=== PATIENT | female | born 1970 | race Caucasian/White ===

== ENCOUNTER → 2016-08-31 | Outpatient (CLI) | payer MEDICAID ==
[2016-08-31 12:33] LABS: BASOPHILS # (AUTO) 0.1 X10^3/uL (0.0-0.1); BASOPHILS % (AUTO) 1.3 % (0.2-1.0); EOSINOPHILS # (AUTO) 0.1 x10^3/uL (0.0-0.2); EOSINOPHILS % (AUTO) 1.3 % (0.9-2.9); HEMATOCRIT 36.9 % (36.0-47.0); HEMOGLOBIN 12.3 g/dL (12.0-16.0); LYMPHOCYTES # (AUTO) 2.3 X10^3/uL (1.3-2.9); LYMPHOCYTES % (AUTO) 40.5 % (21.0-51.0); MEAN CORPUSCULAR HEMOGLOBIN 26.1 pg (27.0-34.0); MEAN CORPUSCULAR HGB CONC 33.2 g/dL (33.0-35.0); MEAN CORPUSCULAR VOLUME 78.8 fL (80.0-100.0); MONOCYTES # (AUTO) 0.5 x10^3/uL (0.3-0.8); MONOCYTES % (AUTO) 9.5 % (0.0-13.0); NEUTROPHILS # (AUTO) 2.6 x10^3/uL (2.2-4.8); NEUTROPHILS % (AUTO) 47.4 % (42.0-75.0); PLATELET COUNT 503 X10^3/uL (150.0-450.0); RED BLOOD COUNT 4.69 X10^6/uL (3.5-5.4); RED CELL DISTRIBUTION WIDTH 15.1 % (11.6-16.5); WHITE BLOOD COUNT 5.6 X10^3/uL (3.6-10.0)
[2016-08-31 12:36] LABS: BILIRUBIN,URINE NEGATIVE (NEGATIVE); BLOOD/HEMOGLOBIN,URINE NEGATIVE (NEGATIVE); GLUCOSE, URINE 1+ (NEGATIVE); KETONES,URINE NEGATIVE (NEGATIVE); LEUKOCYTE ESTERASE ,URINE 1+ (NEGATIVE); NITRITES,URINE NEGATIVE (NEGATIVE); PH,URINE 6.5 (5.0 - 8.0); PROTEIN,URINE NEGATIVE (NEGATIVE); UROBILINOGEN,URINE NORMAL (NORMAL)
[2016-08-31 12:37] LABS: BLOOD UREA NITROGEN 9 mg/dL (7-18); CALCIUM 9.1 mg/dL (8.5-10.1); CARBON DIOXIDE 24.7 mmol/L (21-32); CHLORIDE 101 mmol/L (98-107); COR NA(FOR HYPERGLY) 138 mmol/L (136-145); CREATININE 0.76 mg/dL (0.55-1.02); GLUCOSE 152 mg/dL (65-99); SODIUM 137 mmol/L (136-145); eGFR BLACK RACES > 60 (>60); eGFR NON BLACK RACES > 60 (>60)
[2016-08-31 12:45] LABS: APPEARANCE,URINE CLEAR (CLEAR); BACTERIA,URINE TRACE /HPF (NEGATIVE); COLOR,URINE YELLOW (YELLOW); RBC,URINE 0-1 /HPF (NEGATIVE); SQUAMOUS EPITHELIAL CELL,UR FEW /HPF (NEGATIVE)
--- NOTE | 2016-08-31 12:45 | RAD ---
HISTORY: Preop hysterectomy Study: Chest two-view Comparison: None Findings: The trachea is midline. The cardiac silhouette is unremarkable. The lungs are clear without focal infiltrate or effusion. The bony thorax is unremarkable. IMPRESSION: 1. No acute cardiopulmonary disease. Reported By:
[2016-08-31 15:02] LABS: SERUM PREGNANCY TEST, QUAL NEGATIVE <10 mIU/mL
== END ==
LOC: LAB 11:37
PROVIDERS: ATTEND Specialist
DX: Z01.818 Encounter for other preprocedural examination (principal); N92.5 Other specified irregular menstruation; N94.6 Dysmenorrhea, unspecified; R10.2 Pelvic and perineal pain
CPT/HCPCS: 36415; 71020; 80048; 81001; 84703; 85025; 85610; 85730; 86850; 86900; 86901; 87086; 93005; 93010

== ENCOUNTER 2016-09-07 06:29 | Inpatient (IN) | payer MEDICAID ==
[~2016-09-07 06:29] MED LIST: ANCEF VIAL 1 GM 1 GM in NS 50 ML IV + SPIKE MINIBAG* 50 ML IV PRN; ANCEF VIAL 1 GM ONE; D5 NS IV ONE; NS 50 ML IV + SPIKE MINIBAG* 50 ML IV ONE
[2016-09-07] MEDS ORDERED: D5 1/2 NS 1000 ML 1,000 ML IV ONE (06:33)
[2016-09-07 07:06] VITALS: BMI 21.4
[2016-09-07] MEDS ORDERED: NS 1000 ML 1,000 ML ONE (07:06)
[2016-09-07] MEDS ORDERED: DUONEB 0.5 MG/3 MG NEB ONE ×2 (07:08→09:45)
[2016-09-07] MEDS ORDERED: FENTANYL INJ 250 mcg ONE (07:13)
[2016-09-07 07:49] LABS: BILIRUBIN,URINE NEGATIVE (NEGATIVE); BLOOD/HEMOGLOBIN,URINE 1+ (NEGATIVE); GLUCOSE, URINE NEGATIVE (NEGATIVE); KETONES,URINE NEGATIVE (NEGATIVE); LEUKOCYTE ESTERASE ,URINE NEGATIVE (NEGATIVE); NITRITES,URINE NEGATIVE (NEGATIVE); PROTEIN,URINE NEGATIVE (NEGATIVE); UROBILINOGEN,URINE NORMAL (NORMAL)
[2016-09-07 07:50] LABS: APPEARANCE,URINE SLIGHTLY HAZY (CLEAR); COLOR,URINE YELLOW (YELLOW)
[2016-09-07] MEDS ORDERED: NS IRRIGATION 1000 ML 500 ML IR ONE (07:53)
[2016-09-07 07:55] LABS: BACTERIA,URINE NEGATIVE /HPF (NEGATIVE); SQUAMOUS EPITHELIAL CELL,UR RARE /HPF (NEGATIVE)
[2016-09-07] MEDS ORDERED: DILAUDID INJ ONE (08:03)
[2016-09-07] MEDS ORDERED: NS IRRIGATION 1000 ML 1,000 ML IR ONE (08:20)
[2016-09-07] MEDS ORDERED: DILAUDID INJ IVP PRN (09:03)
[2016-09-07] MEDS ORDERED: PHENERGAN INJ 25 MG IVP PRN (09:03)
[2016-09-07] MEDS ORDERED: ZOFRAN INJ 4 MG VIAL IVP PRN ×2 (09:03→09:33)
[2016-09-07] MEDS ORDERED: REGLAN INJ 10 MG VIAL IVP PRN (09:03)
[2016-09-07] MEDS ORDERED: BENADRYL INJ 50 MG VIAL IVP PRN ×2 (09:03→09:33)
[2016-09-07] MEDS ORDERED: HumuLIN R SUBCUT PRN (09:07)
[2016-09-07] MEDS ORDERED: MORPHINE SULFATE PCA 30 MG IVP PRN ×2 (09:07→09:33)
[2016-09-07] MEDS ORDERED: ROBINUL ONE (09:24)
[2016-09-07] MEDS ORDERED: QUELICIN (OR ANECTINE) ONE (09:24)
[2016-09-07] MEDS ORDERED: DIPRIVAN VIAL ONE (09:24)
[2016-09-07] MEDS ORDERED: ZOFRAN INJ 4 MG VIAL ONE (09:24)
[2016-09-07] MEDS ORDERED: REGLAN INJ 10 MG VIAL ONE (09:24)
[2016-09-07] MEDS ORDERED: VERSED ONE (09:24)
[2016-09-07] MEDS ORDERED: XYLOCAINE 2 % (PLAIN) ONE (09:24)
[2016-09-07] MEDS ORDERED: NEOSTIGMINE INJ ONE (09:24)
[2016-09-07] MEDS ORDERED: NORCURON INJ 10 MG VIAL ONE (09:24)
[2016-09-07] MEDS ORDERED: TORADOL 30 MG VIAL IVP PRN (09:33)
[2016-09-07] MEDS ORDERED: NS 1000 ML 1,000 ML IV SCH (10:00)
[2016-09-07] MEDS: NS 1000 ML 1,000 ML IV SCH ×2 (10:17→19:29)
[2016-09-07] MEDS: NICODERM PATCH TD SCH (10:17)
[2016-09-07] MEDS: HumuLIN R SUBCUT PRN ×2 (11:45→21:18)
[2016-09-07] MEDS ORDERED: DYLOJECT INJ ONE (14:46)
[2016-09-07] MEDS ORDERED: SUPRANE IN ONE (14:46)
[2016-09-07] MEDS ORDERED: SNACK - Diabetic Appropriate PO SCH ×2 (20:00)
[2016-09-07] MEDS ORDERED: CHECK PATCH XX SCH (21:00)
[2016-09-07] MEDS: SNACK - Diabetic Appropriate PO SCH (23:10)
[2016-09-07] MEDS: CHECK PATCH XX SCH (23:11)
[2016-09-08] MEDS: NS 1000 ML 1,000 ML IV SCH (02:50)
[2016-09-08 05:18] LABS: BLOOD UREA NITROGEN 3 mg/dL (7-18); CALCIUM 8.3 mg/dL (8.5-10.1); CARBON DIOXIDE 26.4 mmol/L (21-32); CHLORIDE 105 mmol/L (98-107); COR NA(FOR HYPERGLY) 142 mmol/L (136-145); GLUCOSE 149 mg/dL (65-99); SODIUM 141 mmol/L (136-145); eGFR BLACK RACES > 60 (>60); eGFR NON BLACK RACES > 60 (>60)
[2016-09-08 06:08] LABS: BASOPHILS % (AUTO) 0.6 % (0.2-1.0); EOSINOPHILS % (AUTO) 0.6 % (0.9-2.9); HEMATOCRIT 34.5 % (36.0-47.0); HEMOGLOBIN 11.1 g/dL (12.0-16.0); LYMPHOCYTES % (AUTO) 27.5 % (21.0-51.0); MEAN CORPUSCULAR HEMOGLOBIN 25.4 pg (27.0-34.0); MEAN CORPUSCULAR HGB CONC 32.3 g/dL (33.0-35.0); MEAN CORPUSCULAR VOLUME 78.9 fL (80.0-100.0); MEAN PLATELET VOLUME 8.3 fL (7.4-11.0); MONOCYTES # (AUTO) 0.6 x10^3/uL (0.3-0.8); MONOCYTES % (AUTO) 8.3 % (0.0-13.0); NEUTROPHILS # (AUTO) 4.5 x10^3/uL (2.2-4.8); PLATELET COUNT 304 X10^3/uL (150.0-450.0); RED BLOOD COUNT 4.38 X10^6/uL (3.5-5.4); RED CELL DISTRIBUTION WIDTH 15.5 % (11.6-16.5); WHITE BLOOD COUNT 7.2 X10^3/uL (3.6-10.0)
[2016-09-08] MEDS ORDERED: MOTRIN TAB 800 MG PO PRN (06:12)
[2016-09-08] MEDS: HumuLIN R SUBCUT PRN ×2 (06:26→12:12)
[2016-09-08 06:41] LABS: HYPOCHROMASIA SLIGHT; PLATELET MORPHOLOGY COMMENT NORMAL (NORMAL)
[2016-09-08] MEDS ORDERED: GLUCOPHAGE ONE ×2 (07:19→15:58)
[2016-09-08] MEDS: GLUCOPHAGE PO SCH ×2 (07:21→16:09)
[2016-09-08] MEDS: CELEXA PO SCH (08:31)
[2016-09-08] MEDS: COLACE CAP 100 MG PO SCH ×2 (08:31→20:53)
[2016-09-08] MEDS: LAMICTAL TAB 100 MG PO SCH ×2 (08:31→20:53)
[2016-09-08] MEDS: PERCOCET TAB 5/325 MG PO PRN ×3 (08:32→21:57)
[2016-09-08] MEDS: KLONOPIN TAB 1 MG PO SCH ×2 (08:32→20:53)
[2016-09-08] MEDS: NICODERM PATCH TD SCH (08:52)
[2016-09-08] MEDS: CHECK PATCH XX SCH ×2 (08:53→20:53)
[2016-09-08] MEDS ORDERED: NICODERM PATCH TD SCH (09:00)
[2016-09-08] MEDS: BACTROBAN OINT TOP SCH ×2 (13:34→22:00)
[2016-09-08] MEDS: SYNTHROID 50 mcg TAB PO SCH (16:09)
[2016-09-08] MEDS: SNACK - Diabetic Appropriate PO SCH (20:53)
[2016-09-08] MEDS: PATIENT'S HOME MEDICATION PO SCH (20:55)
[2016-09-08] MEDS ORDERED: SEROQUEL 300 MG PO SCH (21:00)
[2016-09-08] MEDS: MAALOX or MYLANTA PO PRN (21:55)
[2016-09-09] MEDS ORDERED: ZOFRAN TAB 4 MG ONE (04:47)
[2016-09-09] MEDS ORDERED: ZOFRAN TAB 4 MG PO PRN (04:52)
[2016-09-09] MEDS: BACTROBAN OINT TOP SCH ×3 (05:52→21:39)
[2016-09-09] MEDS ORDERED: MYLICON TAB 80 MG CHEW PO PRN (07:06)
[2016-09-09] MEDS ORDERED: PHENERGAN TAB 25 MG PO PRN (07:12)
[2016-09-09] MEDS: CELEXA PO SCH (09:09)
[2016-09-09] MEDS: COLACE CAP 100 MG PO SCH ×2 (09:09→21:36)
[2016-09-09] MEDS: LAMICTAL TAB 100 MG PO SCH ×2 (09:09→21:36)
[2016-09-09] MEDS: KLONOPIN TAB 1 MG PO SCH ×2 (09:09→21:36)
[2016-09-09] MEDS: NICODERM PATCH TD SCH (09:09)
[2016-09-09] MEDS ORDERED: GLUCOPHAGE ONE ×2 (09:10→18:28)
[2016-09-09] MEDS: GLUCOPHAGE PO SCH ×2 (09:11→18:26)
[2016-09-09] MEDS: CHECK PATCH XX SCH ×2 (09:30→21:38)
[2016-09-09] MEDS: HumuLIN R SUBCUT PRN ×2 (11:29→21:39)
[2016-09-09] MEDS: PERCOCET TAB 5/325 MG PO PRN ×2 (13:08→22:33)
[2016-09-09] MEDS: MAALOX or MYLANTA PO PRN (13:09)
[2016-09-09] MEDS: SYNTHROID 50 mcg TAB PO SCH (18:26)
[2016-09-09] MEDS: PATIENT'S HOME MEDICATION PO SCH (21:36)
[2016-09-09] MEDS: SNACK - Diabetic Appropriate PO SCH (21:37)
[2016-09-10] MEDS ORDERED: GLUCOPHAGE ONE (05:44)
[2016-09-10] MEDS: BACTROBAN OINT TOP SCH (06:25)
[2016-09-10] MEDS: GLUCOPHAGE PO SCH (06:26)
[2016-09-10 08:06] VITALS: BP 109/57
[2016-09-10] MEDS: CHECK PATCH XX SCH (08:30)
[2016-09-10] MEDS: KLONOPIN TAB 1 MG PO SCH (08:32)
[2016-09-10] MEDS: COLACE CAP 100 MG PO SCH (08:32)
[2016-09-10] MEDS: PERCOCET TAB 5/325 MG PO PRN (08:32)
[2016-09-10] MEDS: CELEXA PO SCH (08:32)
[2016-09-10] MEDS: LAMICTAL TAB 100 MG PO SCH (08:32)
[2016-09-10] MEDS: NICODERM PATCH TD SCH (08:33)
== END 2016-09-10 11:05 | disposition home or self-care (01) | DRG 742 ==
LOC: MED/SURG 06:29
PROVIDERS: ADMIT Specialist; ATTEND Specialist
PROC: 0UTC0ZZ Resection of Cervix, Open Approach (ICD-10-PCS; 2016-09-07)
PROC: 0UT70ZZ Resection of Bilateral Fallopian Tubes, Open Approach (ICD-10-PCS; 2016-09-07)
PROC: 0UT20ZZ Resection of Bilateral Ovaries, Open Approach (ICD-10-PCS; 2016-09-07)
PROC: 0UT90ZZ Resection of Uterus, Open Approach (ICD-10-PCS; principal; 2016-09-07 07:30)
DX: N94.4 Primary dysmenorrhea (principal); N92.5 Other specified irregular menstruation; F31.89 Other bipolar disorder; R10.2 Pelvic and perineal pain; E03.8 Other specified hypothyroidism; E11.65 Type 2 diabetes mellitus with hyperglycemia
CPT/HCPCS: 36415; 80048; 81001; 85025; 94640; A4216; A4222; S0181; J0330; J0690; J1170; J1815; J2001; J2250; J2271; J2405; J2710; J2765; J3010; J3490; J7042; J7620

== ENCOUNTER 2016-11-14 04:00 | Emergency (ER) | payer MEDICAID ==
[2016-11-14 04:14] VITALS: BP 143/84; BMI 20.9
[2016-11-14] MEDS ORDERED: PHENERGAN INJ 25 MG IM ONE (04:38)
[2016-11-14] MEDS ORDERED: PREDNISONE TAB 20 MG PO ONE ×2 (04:38→04:42)
[2016-11-14] MEDS ORDERED: TORADOL 60 MG VIAL IM ONE (04:38)
--- NOTE | 2016-11-14 04:40 | DR.GENAD ---
HPI - PCP Primary Care Physician: LINDSAY - Complaint/Symptoms Chief Complaint Doctors Comments: Patient complains of right shoulder pain for the past three months with right hand hurting. States she had a hysterectomy and was taking pain pills in between and it did no hurt as bad but she is out of her pain medicines and her doctor gave her NSAID's and they are not helping the pain. States she had a x-ray on her shoulder in [facility] and was told it was normal and she was given NSAIDs. Her right shoulder hurts when she moves it. She has not seen an orthopedist and her doctor was suppose to be sending her to an orthopedist but she has not heard back from her doctor who was making the appointment. She denies chest pain, SOB, nasuea or vomiting. She denies any recent trauma. Chief Complaint:: RIGHT SHOULDER AND ARM PAIN SINCE SEPTEMBER , WORSE TONIGHT. - Nurses notes reviewed Nurses Notes Review: Yes - Source History Provided: Patient - Mode of Arrival Mode of Arrival: Ambulatory - Timing Onset of Chief Complaint: 09/07/16 Came on: Gradually - Duration Duration: Intermittent How lon Duration: Weeks - Location Location: right shoulder - Severity Severity: Moderate - Modifying Factors Worsens:: moves Improves:: nothing PMH - PMH Past Medical History: Yes Past Medical History: Depression, Diabetes, Dyslipidemia, Hyperthyroidism Past Medical History Comment: BIPOLAR, UNDERACTIVE THYROID Past Surgical History: Yes Surgical History: Cholecystectomy, Hysterectomy, Ortho Surgery - Family History History of Family Medical Conditions: Yes Family Medical History: Diabetes Mellitus, Cancer - Social History Type of Tobacco Use: Cigarettes Alcohol Use: None Do you use any recreational Drugs:: No Lives With: Spouse Lives Where: Home - infectious screening Have you traveled outside the country in the last 6 months?: No Isolation: Standard ROS - Review of Systems Constitutional: No Symptoms Reported. negative: See HPI, Chills, Diaphoresis, Fever, Malaise, Weakness, Irritable, Fatigue, Loss of Appetite, Other Eyes: No Symptoms Reported ENTM: No Symptoms Reported. negative: See HPI, Ear Pain, Ear Discharge, Pulling on Ears, Hearing Loss, Nose Pain, Nose Discharge, Epistaxis, Nose Congestion, Mouth Pain, Mouth Swelling, Loose Teeth, Drooling, Throat Pain, Throat Swelling, Ear Foreign Body Respiratoy: No Symptoms Reported. negative: See HPI, Productive Cough, Non- Productive Cough, Moist Cough, Dry Cough, Hacking Cough, Barking Cough, Brassy Cough, Orthopnea, Short of Breath, Stridor, Wheezing, Hemoptysis, Other Cardiovascular: No Symptoms Reported. negative: See HPI, Chest Pain, Edema, Palpitations, Syncope, Cyanosis, Skin Mottling, Other Gastrointestinal/Abdominal: No Symptoms Reported. negative: See HPI, Abdominal Pain, Constipation, Diarrhea, Nausea, Vomiting, Food Intolerance, Other Genitourinary: No Symptoms Reported Neurological: No Symptoms Reported, Numbness (right hand), Paresthesia. negative: See HPI, Anxiety, Depressed, Emotional Problems, Headache, Pre- existing Deficit, Seizure, Tingling, Tremors, Weakness, Dizziness, Problems Walking, Speech Problem, Other Musculoskeletal: No Symptoms Reported, Right, Shoulder Integumentary: No Symptoms Reported. negative: See HPI, Change in Color, Change in Hair/Nails, Dryness, Lesions, Lumps, Rash, Itching, Wound, Bruises, Juandice, Other Hematologic/Lymphatic: No Symptoms Reported Endocrine: No Symptoms Reported Psychiatric: No Symptoms Reported PE - Vital Signs Vitals: Temperature 98.3 F Pulse Rate 100 Respiratory Rate 16 Blood Pressure [Right Arm] 90/52 Blood Pressure [Left Arm] 109/57 Blood Pressure 143/84 O2 Sat by Pulse Oximetry 97 - General Limitations: No Limitations General Appearance: Alert, In No Apparent Distress - Head Head Exam: Normal Inspection, Atraumatic, Normocephalic - Eyes Eye exam: Normal Appearance, PERRL, EOMI. negative: Scleral Icterus, Conjunctival Injection, Nystagmus, Miosis, Mydrasis, Periorbital Swelling, Periorbital Tenderness, Other - ENT ENT Exam: Normal Exam, Normal Oropharynx, Normal External Ear Exam, Mucous Membranes Moist, TM's Normal Bilaterally. negative: Mucous Membranes Dry, Other External Ear Exam: Normal External Inspection. negative: Auricular Hematoma, Auricular Trauma, Mastoid Tenderness, Pain with Movement, External Tenderness, Periauricular Adenopathy, Other TM/Canal Exam: Bilateral Normal Nose Exam: Normal Nose Exam Mouth Exam: Normal Inspection Throat Exam: Normal Inspection. negative: Tonsillar Erythema, Tonsillomegaly, Tonsillar Exudate, R Peritonsillar Mass, L Peritonsillar Mass, Muffled Voice, Other - Neck Neck Exam: Normal Inspection, Full ROM, Trachea Midline. negative: Tenderness, Meningismus, Lymphadenopathy, Thyromegaly, Other - Chest Chest Inspection: Normal Inspection, Symmetric Chest Wall Rise - Respiratory Respiratory Exam: Normal Lung Sounds Bilat Respiratory Exam: Bilateral Clear to Auscultation - Cardiovascular Cardiovascular Exam: Regular Rate, Normal Rhythm, Normal Heart Sounds - Abdominal Exam Abdominal Exam: Normal Inspection, Normal Bowel Sounds, Soft. negative: Distention, Tenderness, Guarding, Rebound, Rigidity, Dimnished Bowel Sounds, Hyperactive Bowel Sounds, Hypoactive Bowel Sounds, Organomegaly, Trauma, Incision, Ascites, Mass, Bruit, Pulsatile Mass, Hernia, Other Abdominal Tenderness: negative: RUQ, RLQ, LUQ, LLQ, Epigastrium, Suprapubic, Diffuse, Mild, Moderate, Severe, Other - Extremities Extremities Exam: Normal Inspection, Full ROM, Tenderness (right shoulder tender on palpation and elevation), Normal Capillary Refill. negative: Edema, Joint Swelling, Calf Tenderness, Other - Back Back Exam: Normal Inspection, Full ROM. negative: Tenderness, (R) CVA Tenderness, (L) CVA Tenderness, Muscle Spasm, Paraspinal Tenderness, Vertebral Tenderness, Rashes, (R) Sciatic Notch Tenderness, (L) Sciatic Notch Tendern, (R ) Straight Leg Raise, (L) Straight Leg Raise, Other - Neurologic Neurological Exam: Alert, Oriented X3, CN II-XII Intact, Normal Gait, Reflexes Normal - Psychiatric Psychiatric Exam: Normal Affect, Normal Mood - Skin Skin Exam: Warm, Dry, Intact, Normal Color. negative: Rash, Cyanosis, Diaphoresis, Erythema, Pallor, Mottled, Other ROR - Labs Reviewed Laboratory Results Reviewed?: Yes (All x-ray results reviewed and discussed with patient) - XRAY XRAY Interpreted by: Radiologist (CT right shoulder: Normal right shoulder CT exam) - Diagnosis Discharge Problem: Bursitis Right shoulder pain Qualifiers: Chronicity: unspecified Qualified Code(s): M25.511 - Pain in right shoulder - Discharge Plan Disposition: 01 HOME, SELF-CARE Condition: Stable Prescriptions: Methylprednisolone Dosepak 4Mg [MEDROL DOSEPAK (4 mg tab x 21)] 1 bertrand PO ONCE # 1 bertrand - Follow ups/Referrals Follow ups/Referrals: NFD,None [Primary Care Provider] - 3 days [facility] [STAFF PHYSICIAN] - 3 days - Instructions Instructions: Shoulder Pain, Bursitis, [id number]
[2016-11-14] MEDS ORDERED: TORADOL 60 MG VIAL ONE (04:41)
[2016-11-14] MEDS ORDERED: PHENERGAN INJ 25 MG ONE (04:42)
--- NOTE | 2016-11-14 05:29 | CT ---
EXAM: CT right shoulder without contrast INDICATION: Shoulder pain COMPARISION: No prior TECHNIQUE: Axial CT examination of the right shoulder was performed without intravenous contrast. Coronal and s agittal reconstructions were created using the axial data. FINDINGS: No acute fracture or dislocation. The joint spaces are preserved. The soft tissues are normal. No ra diopaque foreign body. IMPRESSION: 1: Normal right shoulder CT exam Reported By:
== END 2016-11-14 05:41 | disposition home or self-care (01) ==
LOC: ER 04:00
DX: M71.9 Bursopathy, unspecified (principal); M25.511 Pain in right shoulder
CPT/HCPCS: 73200; 96372; 99283; J1885; J2550; J7506

== ENCOUNTER 2017-01-13 21:33 | Emergency (ER) | payer MEDICAID ==
[2017-01-13 21:45] VITALS: BP 144/96; BMI 20.9
--- NOTE | 2017-01-13 22:31 | DR.GENAD ---
HPI - PCP Primary Care Physician: Bryson - Complaint/Symptoms Chief Complaint Doctors Comments: Patient has been in physical therapy for several months under the care of ortho from [facility]. She admits to having pain medication for her shoulder but does not like to take them. She has an appointment on Wednesday. She is being seen for right frozen shoulder. Chief Complaint:: "I have had shoulder pain since about August. I have been going to an ortho and he states that I have a frozen shoulder. I have had anti- inflammitories and shots and it has not helped very much. I have an appointment Wednesday, but today I was getting off the couch and it felt like it tore. I just don't think I can make it to then." - Source History Provided: Patient - Mode of Arrival Mode of Arrival: Ambulatory - Timing Onset of Chief Complaint: 01/13/17 PMH - PMH Past Medical History: Yes Past Medical History: Depression, Diabetes, Dyslipidemia, Hypothyroidism Past Surgical History: Yes Surgical History: Cholecystectomy, Hysterectomy, Ortho Surgery Past Surgical History Comment: both feet - Family History History of Family Medical Conditions: Yes Family Medical History: Diabetes Mellitus, Cancer - Social History Does patient currently use any type of tobacco product: Yes Have you used tobacco products in the last 12 months: Yes Type of Tobacco Use: Cigarettes Does any household member use tobacco: Yes Alcohol Use: None Do you use any recreational Drugs:: No Lives With: Spouse Lives Where: Home - infectious screening In the last 2 months have you had wt loss of >10#?: NO Have you had fever, night sweats or hemotysis?: No Have you traveled outside the country in the last 6 months?: No Isolation: Standard ROS - Review of Systems Eyes: No Symptoms Reported ENTM: No Symptoms Reported Respiratoy: No Symptoms Reported Cardiovascular: No Symptoms Reported Gastrointestinal/Abdominal: No Symptoms Reported Genitourinary: No Symptoms Reported Neurological: No Symptoms Reported Musculoskeletal: Left (shoulder) Integumentary: No Symptoms Reported Hematologic/Lymphatic: No Symptoms Reported Endocrine: No Symptoms Reported Psychiatric: No Symptoms Reported All Other Systems: Reviewed and Negative PE - Vital Signs Vitals: Temperature 97.8 F Pulse Rate 76 Respiratory Rate 18 Blood Pressure [Right Arm] 90/52 Blood Pressure [Left Arm] 109/57 Blood Pressure 144/96 O2 Sat by Pulse Oximetry 97 - General Limitations: No Limitations General Appearance: Alert, In No Apparent Distress - Head Head Exam: Normal Inspection, Atraumatic - Eyes Eye exam: Normal Appearance, PERRL, EOMI - ENT ENT Exam: Normal Exam External Ear Exam: Normal External Inspection TM/Canal Exam: Bilateral Normal Nose Exam: Normal Nose Exam Mouth Exam: Normal Inspection Throat Exam: Normal Inspection - Neck Neck Exam: Normal Inspection - Chest Chest Inspection: Normal Inspection - Respiratory Respiratory Exam: Normal Lung Sounds Bilat Respiratory Exam: Bilateral Clear to Auscultation - Cardiovascular Cardiovascular Exam: Regular Rate, Normal Rhythm - Abdominal Exam Abdominal Exam: Normal Inspection Abdominal Tenderness: negative: RUQ, RLQ, LUQ, LLQ, Epigastrium, Suprapubic, Diffuse, Mild, Moderate, Severe, Other - Extremities Extremities Exam: Normal Inspection, Other (restriction motion to abduction) - Back Back Exam: Normal Inspection - Neurologic Neurological Exam: Alert, Oriented X3, CN II-XII Intact - Psychiatric Psychiatric Exam: Normal Affect, Normal Mood - Skin Skin Exam: Warm, Dry, Intact - Diagnosis Discharge Problem: Chronic pain in right shoulder - Discharge Plan Condition: Stable - Follow ups/Referrals Follow ups/Referrals: RUDDY MONTOYA [Primary Care Provider] - 3 days - Instructions
== END 2017-01-13 22:53 | disposition home or self-care (01) ==
LOC: ER 21:48
DX: M25.511 Pain in right shoulder (principal)
CPT/HCPCS: 99282